=== PATIENT | male | born 1985 | race Two or more races ===

== ENCOUNTER 2023-02-27 23:09 | Emergency (ER) | payer OTHER ==
[2023-02-27 23:21] VITALS: BP 116/76; PULSE 87; RESP 20; TEMP 99.2; BMI 73.3
[2023-02-28] MEDS ORDERED: BENZONATATE 200 MG CAPSULE PO ONE (02:40)
== END 2023-02-28 02:52 | disposition home or self-care (01) ==
LOC: JERFT 23:09 → JER 23:09 → JERFT 02-28 02:52
DX: R05.9 Cough, unspecified (principal); R09.81 Nasal congestion; R09.82 Postnasal drip; B97.4 Respiratory syncytial virus as the cause of diseases classified elsewhere; Z20.822 Contact with and (suspected) exposure to COVID-19
CPT/HCPCS: 0241U-QW; 71046-TC-FY; 87651; 93005; 93010; 99285-25